=== PATIENT | female | born 1990 | race Caucasian/White ===

== ENCOUNTER 2021-10-15 11:15 | Emergency (ER) | payer OTHER ==
[~2021-10-15] VITALS: Ht 154.9 cm; Wt 60.8 kg
[2021-10-15 11:30] VITALS: BP_SYST 147
--- NOTE | 2021-10-15 11:30 | NUR ---
PT CAME FROM HOME WITH CC OF CLARIFYING STATUS. PT TESTED POSITIVE FOR ON 10/05/2021, BLOOD TEST AND URINE. [facility] AND HAS U/S AND STATED THE RESULT SHOWED AN EMPTY UTERUS WHICH VALERIA FAJARDO CONCERNED FOR ECTOPIC .
--- NOTE | 2021-10-15 11:47 | NUR ---
Dr. Quijano at bedside examining pt.
[2021-10-15 12:15] LABS: BILIRUBIN,URINE NEGATIVE (NEGATIVE); CLARITY/URINE CLEAR (CLEAR); COLOR,URINE YELLOW (YELLOW); GLUCOSE,URINE NEGATIVE (NEGATIVE); KETONES,URINE NEGATIVE (NEGATIVE); LEUKOCYTE ESTERASE ,URINE 2+ (NEGATIVE); NITRITE, URINE NEGATIVE (NEGATIVE); PROTEIN URINE NEGATIVE (NEGATIVE)
[2021-10-15 12:16] LABS: HCG,QUAL RESULT POSITIVE (NEGATIVE)
--- NOTE | 2021-10-15 12:20 | NUR ---
Urine done and results were positive.
[2021-10-15 12:30] LABS: BLOOD, URINE TRACE (NEGATIVE)
[2021-10-15 13:49] LABS: EOSINOPHILS # (AUTO) 0.1 K/uL (0.0-0.4); EOSINOPHILS % (AUTO) 1.4 % (0.0-4.0); HEMATOCRIT 39.2 % (36-48); HEMOGLOBIN 13.6 g/dL (12.0-16.0); LYMPHOCYTES # (AUTO) 1.4 K/uL (1.0-5.5); LYMPHOCYTES % (AUTO) 16.9 % (20.5-51.5); MEAN CORPUSCULAR HEMOGLOBIN 31 pg (27-31); MEAN CORPUSCULAR HGB CONC 35 % (32-36); MEAN CORPUSCULAR VOLUME 89 fL (79.0-98.0); MONOCYTES # (AUTO) 0.5 K/uL (0.0-1.0); MONOCYTES % (AUTO) 6.1 % (1.7-9.3); PLATELET COUNT (AUTO) 241 K/uL (130-430); RED BLOOD CELL COUNT(AUTO) 4.43 MIL/uL (4.2-6.2); RED CELL DISTRIBUTION WIDTH 13.8 % (9.0-15.0)
[2021-10-15 13:53] LABS: BASOPHILS % (AUTO) 0.7 % (0.0-2.0); NEUTROPHILS % (AUTO) 74.9 % (40.0-70.0)
[2021-10-15 14:28] LABS: BACTERIA,URINE RARE /HPF (None Seen)
--- NOTE | 2021-10-15 14:37 | NUR ---
Pt back from CT. Pt has no c/o. A&Ox4.
[2021-10-15] MEDS ORDERED: CEPH-548 PO ×3 (15:06→15:11)
[2021-10-15] MEDS ORDERED: cephALEXin 500 MG CAPSULE PO ONE (15:15)
[2021-10-15 15:23] VITALS: BP_SYST 124
--- NOTE | 2021-10-15 15:23 | NUR ---
Patient given written and verbal discharge instructions and verbalizes understanding. ER MD discussed with patient the results and treatment provided. Patient in stable condition. ID arm band removed. Rx of Cephalexin given. Patient educated on pain management and to follow up with PMD. Pain Scale . Opportunity for questions provided and answered. Medication side effect fact sheet provided.
== END 2021-10-15 15:23 | disposition home or self-care (01) ==
LOC: SED 11:15
DX: O20.0 Threatened abortion (principal); O23.41 Unspecified infection of urinary tract in pregnancy, first trimester; Z3A.01 Less than 8 weeks gestation of pregnancy
CPT/HCPCS: 36415; 76856-TC; 81000; 81025; 84702; 84703; 85025; 86900; 86901; 87086; 99284